=== PATIENT | male | born 1985 | race Hispanic/Latino ===

== ENCOUNTER 2019-10-10 09:28 | Emergency (ER) | payer SELFPAY ==
[~2019-10-10 09:28] MED LIST: Sodium Chloride Irrig Solution 250 ML BOT ONE
[2019-10-10] MEDS ORDERED: Lidocaine 1% w/Epinephrine 1:100K 20 ML VIAL ONE (09:56)
--- NOTE | 2019-10-10 10:12 | CT ---
Head CT without contrast 10/10/2019: COMPARISON: None HISTORY: Head injury. TECHNIQUE: Axial CT imaging at 5 mm intervals from vertex through skull base without contrast. Coron al and sagittal reformatted imaging obtained FINDINGS: The imaged paranasal sinuses and mastoid air cells appear well-aerated. There is a soft tis jaiden laceration suspected just medial to the left globe, just superior to the left nasal bone. No intracranial hemorrhage, midline shift, mass effect, or ventricular enlargement. IMPRESSION: Soft tissue laceration medial to the left orbit superiorly. No associated fracture or int racranial hemorrhage.
[2019-10-10] MEDS ORDERED: Bacitracin 1 PK ONE (10:28)
[2019-10-10] MEDS ORDERED: Adacel (T-DAP) 0.5 ML SYRINGE ONE (10:32)
== END 2019-10-10 10:57 | disposition home or self-care (01) ==
LOC: MADERS 09:28
DX: S01.81XA Laceration without foreign body of other part of head, initial encounter (principal); Z23 Encounter for immunization; W20.8XXA Other cause of strike by thrown, projected or falling object, initial encounter; Y99.0 Civilian activity done for income or pay
CPT/HCPCS: 12013; 70450; 90471; 90715